=== PATIENT | female | born 1995 | race Native Hawaiian/Other Pacific Islander ===

== ENCOUNTER 2016-06-16 00:48 | Emergency (ER) | payer OTHER ==
[~2016-06-16 00:48] MED LIST: BACTRIM DS1 TAB PO
[2016-06-16 02:09] VITALS: BP 119/87
== END 2016-06-16 02:09 | disposition home or self-care (01) ==
LOC: ED 00:48
DX: J02.9 Acute pharyngitis, unspecified (principal)

== ENCOUNTER 2016-12-20 06:56 | Emergency (ER) | payer OTHER ==
[2016-12-20 08:11] VITALS: BP 125/72
== END 2016-12-20 08:11 | disposition home or self-care (01) ==
LOC: ED 06:56
DX: S05.02XA Injury of conjunctiva and corneal abrasion without foreign body, left eye, initial encounter (principal); J45.909 Unspecified asthma, uncomplicated; R03.0 Elevated blood-pressure reading, without diagnosis of hypertension; Z88.0 Allergy status to penicillin; X58.XXXA Exposure to other specified factors, initial encounter; Y93.89 Activity, other specified; Y92.89 Other specified places as the place of occurrence of the external cause; Y99.8 Other external cause status
CPT/HCPCS: 90715

== ENCOUNTER 2017-05-26 10:58 | Emergency (ER) | payer OTHER ==
[~2017-05-26] VITALS: Ht 167.6 cm; Wt 80.3 kg
[2017-05-26 11:05] VITALS: Ht 167.6 cm; Wt 80.3 kg
[2017-05-26 12:46] VITALS: BP 130/79
== END 2017-05-26 13:15 | disposition home or self-care (01) ==
LOC: ED 10:58
DX: S16.1XXA Strain of muscle, fascia and tendon at neck level, initial encounter (principal); J45.909 Unspecified asthma, uncomplicated; N39.0 Urinary tract infection, site not specified; Z88.0 Allergy status to penicillin; X58.XXXA Exposure to other specified factors, initial encounter; Y93.89 Activity, other specified; Y92.89 Other specified places as the place of occurrence of the external cause; Y99.8 Other external cause status; S29.012A Strain of muscle and tendon of back wall of thorax, initial encounter
CPT/HCPCS: 72072; J1885

== ENCOUNTER 2017-08-27 18:39 | Emergency (ER) | payer OTHER, MEDICAID ==
[~2017-08-27] VITALS: Ht 167.6 cm; Wt 71.7 kg
[2017-08-27 18:49] VITALS: Ht 167.6 cm; Wt 71.7 kg
[2017-08-27 20:38] VITALS: BP 153/66
== END 2017-08-27 20:38 | disposition home or self-care (01) ==
LOC: ED 18:39
DX: L25.9 Unspecified contact dermatitis, unspecified cause (principal); J45.909 Unspecified asthma, uncomplicated; Z88.0 Allergy status to penicillin